=== PATIENT | female | born 1980 | race Caucasian/White ===

== ENCOUNTER 2017-07-17 07:41 | Day surgery (SDC) ==
[2014-04-06 17:24] VITALS: BMI 27.4
[2017-07-17] MEDS: LIDOCAINE 1%-EPI 1:100,000 20 ML MDV INJ STA (08:41)
[2017-07-17] MEDS: LIDOCAINE 1% 20 ML MDV ID STA (08:42)
[2017-07-17] MEDS: NEOSPORIN OINT 0.9 GM PACKET TP STA (09:05)
[2017-07-17 09:31] VITALS: BP 128/73; TEMP 98.2
--- NOTE | 2017-07-25 13:51 | OP ---
PREOPERATIVE DIAGNOSIS: INCLUSION CYST OF LEFT MASTOID POSTOPERATIVE DIAGNOSIS: INCLUSION CYST OF LEFT MASTOID OPERATION: EXCISION OF INCLUSION CYST OF LEFT MASTOID EAR LOBE UNDER LOCAL PROCEDURE: The patient was taken to surgery, placed on the table and general anesthesia was administered with 1% Xylocaine with Epinephrine. On the left ear an incision approximately 1.5 cm x 1.25 cm was made to subcutaneous tissue. Dissection was carried down through the ear lobe fat and the lesion was removed. Bleeding controlled with cauterization. Subcutaneous tissue was closed using interrupted 4-0 Chromic suture and the skin was closed using interrupted 5 -0 nylon. The patient was taken back to recovery in satisfactory condition. [facility]
== END 2017-07-17 09:28 | disposition home or self-care (01) ==
LOC: SURG 07:41
PROVIDERS: ATTEND Otolaryngology
DX: Q18.1 Preauricular sinus and cyst (principal)
CPT/HCPCS: 69110; 81025

== ENCOUNTER 2017-11-28 15:59 | Outpatient (CLI) | payer OTHER ==
[2014-04-06 17:24] VITALS: BMI 27.4
--- NOTE | 2017-11-29 07:55 | DI ---
EXAM: Chest two views HISTORY: Cough COMPARISON: None TECHNIQUE: Two views of the chest were performed FINDINGS: The lungs are clear. There is no pleural effusion or pneumothorax. The heart is normal i n size. The mediastinal contour is normal. There are no acute abnormalities of the bones. IMPRESSION: No acute cardiopulmonary process.
== END 2017-11-28 16:00 | disposition home or self-care (01) ==
LOC: RAD 15:59
PROVIDERS: ATTEND Family Medicine
DX: R05 Cough (principal)